=== PATIENT | female | born 1990 | race African-American/Black ===

== ENCOUNTER 2020-06-21 09:03 | Observation (INO) | payer MEDICAID, OTHER ==
[~2020-06-21 09:03] MED LIST: CEPH-37 PO; IBUP800T24 PO; LOP2C PO; ONDA-133 PO
[2020-06-21] MEDS ORDERED: PREN-96 PO (10:04)
[2020-06-21] MEDS ORDERED: METF-370 PO (10:04)
== END 2020-06-21 10:34 | disposition home or self-care (01) | DRG 566 ==
LOC: EDBD → LDRP 09:03
PROVIDERS: ADMIT Specialist; ATTEND Specialist
DX: O24.419 Gestational diabetes mellitus in pregnancy, unspecified control (principal); Z3A.31 31 weeks gestation of pregnancy
CPT/HCPCS: 59025; 76818; 81002; 82948; 82962; G0378

== ENCOUNTER 2020-06-28 09:07 | Observation (INO) | payer MEDICAID ==
[~2020-06-28 09:07] MED LIST changes: +METF-370 PO; +PREN-96 PO
== END 2020-06-28 10:30 | disposition home or self-care (01) | DRG 566 ==
LOC: LDRP 09:07
PROVIDERS: ADMIT Specialist; ATTEND Specialist
DX: O24.414 Gestational diabetes mellitus in pregnancy, insulin controlled (principal); Z3A.32 32 weeks gestation of pregnancy
CPT/HCPCS: 59025; 76818; 81002; 82962; G0378

== ENCOUNTER 2020-07-05 10:09 | Observation (INO) | payer MEDICAID | END 2020-07-05 11:38 | disposition home or self-care (01) | DRG 566 | LOC: LDRP 10:09 | PROVIDERS: ADMIT Specialist; ATTEND Specialist | DX: O24.414 Gestational diabetes mellitus in pregnancy, insulin controlled (principal); Z3A.33 33 weeks gestation of pregnancy | CPT/HCPCS: 59025; 76818; 81002; 82948; 82962; G0378 ==

== ENCOUNTER 2020-07-09 10:24 | Observation (INO) | payer MEDICAID ==
[~2020-07-09] VITALS: Ht 162.6 cm; Wt 95.3 kg
[2020-07-09] MEDS ORDERED: TERBUTALINE SULFATE 1 MG/ML 1ML VIAL SC ONE (12:00)
[2020-07-09] MEDS ORDERED: NIF10C PO (13:36)
== END 2020-07-09 13:30 | disposition home or self-care (01) | DRG 566 ==
LOC: EDBD → LDRP 10:24
PROVIDERS: ADMIT Specialist; ATTEND Specialist
DX: O24.415 Gestational diabetes mellitus in pregnancy, controlled by oral hypoglycemic drugs (principal); O62.9 Abnormality of forces of labor, unspecified; O12.03 Gestational edema, third trimester; Z91.040 Latex allergy status; Z79.84 Long term (current) use of oral hypoglycemic drugs; Z3A.34 34 weeks gestation of pregnancy
CPT/HCPCS: 59025; 76818; 81002; 82948; 82962; 96372; G0378; J3105

== ENCOUNTER 2020-07-12 10:14 | Observation (INO) | payer MEDICAID ==
[~2020-07-12 10:14] MED LIST changes: +NIF10C PO
== END 2020-07-12 11:20 | disposition home or self-care (01) ==
LOC: LDRP 10:14
PROVIDERS: ADMIT Obstetrics & Gynecology; ATTEND Obstetrics & Gynecology
DX: O24.414 Gestational diabetes mellitus in pregnancy, insulin controlled (principal); Z3A.34 34 weeks gestation of pregnancy
CPT/HCPCS: 59025; 76818; 81002; 82948; G0378

== ENCOUNTER 2020-07-16 12:43 | Observation (INO) | payer MEDICAID | END 2020-07-16 15:00 | disposition home or self-care (01) | LOC: LDRP 12:43 | PROVIDERS: ADMIT Specialist; ATTEND Specialist | DX: O24.414 Gestational diabetes mellitus in pregnancy, insulin controlled (principal); O62.9 Abnormality of forces of labor, unspecified; Z3A.35 35 weeks gestation of pregnancy | CPT/HCPCS: 76818; 82962; G0378; 59025; 81002; 82948 ==

== ENCOUNTER 2020-07-19 10:14 | Observation (INO) | payer MEDICAID | END 2020-07-19 11:15 | disposition home or self-care (01) | LOC: EDBD → LDRP 10:14 | PROVIDERS: ADMIT Specialist; ATTEND Specialist | DX: O24.414 Gestational diabetes mellitus in pregnancy, insulin controlled (principal); Z3A.35 35 weeks gestation of pregnancy | CPT/HCPCS: 59025; 76818; 81002; 82948; 82962; G0378 ==

== ENCOUNTER 2020-07-23 19:04 | Observation (INO) | payer MEDICAID | END 2020-07-23 20:28 | disposition home or self-care (01) | LOC: EDBD → LDRP 19:04 | PROVIDERS: ADMIT Specialist; ATTEND Specialist | DX: O24.419 Gestational diabetes mellitus in pregnancy, unspecified control (principal); Z3A.36 36 weeks gestation of pregnancy | CPT/HCPCS: 59025; 76818; 81002; 82948; 82962; G0378 ==

== ENCOUNTER 2020-07-26 11:20 | Observation (INO) | payer MEDICAID ==
[~2020-07-26] VITALS: Ht 157.5 cm; Wt 98.4 kg
[2020-07-26] MEDS ORDERED: NIFEdipine 10 MG CAP PO ONE ×2 (13:00→13:45)
[2020-07-26 13:36] LABS: Basophils # (auto) 0 10 ^3/uL (0-0.2); Basophils % (auto) 0.7 % (0.0-2.0); Eosinophils # (auto) 0.1 10 ^3/uL (0-0.8); Eosinophils % (auto) 1.3 % (0.0-7.0); Hematocrit 35.4 % (36.0-46.0); Hemoglobin 11.7 g/dL (12.2-16.2); Lymphocytes # (auto) 1.3 10 ^3/uL (0.4-5.4); Lymphocytes % (auto) 20.1 % (10.0-50.0); Mean Corpuscular Hemoglobin 26.3 pg (28.0-32.0); Mean Corpuscular Volume 79.9 fL (80.0-100.0); Monocytes # (auto) 0.6 10 ^3/uL (0-1.3); Monocytes % (auto) 9.4 % (0.0-12.0); Neutrophils # (auto) 4.4 10 ^3/uL (1.6-8.6); Neutrophils % (auto) 68.5 % (37.0-80.0); Platelet Count (auto) 254 10^3/uL (140-450); Red Blood Cells 4.43 10^6/uL (4.0-5.20); Red Cell Distribution Width 14.4 % (11.8-14.3); White Blood Cell 6.5 10^3/uL (4.4-10.8)
[2020-07-27 05:07] LABS: RPR Non Reactive (Non Reactive)
== END 2020-07-26 14:50 | disposition home or self-care (01) ==
LOC: LDRP 11:20
PROVIDERS: ADMIT Specialist; ATTEND Specialist
DX: O24.414 Gestational diabetes mellitus in pregnancy, insulin controlled (principal); O62.9 Abnormality of forces of labor, unspecified; Z3A.36 36 weeks gestation of pregnancy
CPT/HCPCS: 36415; 59025; 76818; 81002; 82948; 82962; 83036; 85025; 86592; G0378

== ENCOUNTER 2020-07-30 10:13 | Observation (INO) | payer MEDICAID | END 2020-07-30 11:15 | disposition home or self-care (01) | LOC: LDRP 10:13 | PROVIDERS: ADMIT Specialist; ATTEND Specialist | DX: O24.419 Gestational diabetes mellitus in pregnancy, unspecified control (principal); Z3A.37 37 weeks gestation of pregnancy | CPT/HCPCS: 59025; 76818; 81002; 82948; 82962; G0378 ==

== ENCOUNTER 2020-08-02 10:20 | Observation (INO) | payer MEDICAID ==
[~2020-08-02 10:20] MED LIST changes: -NIF10C PO; -PREN-96 PO
== END 2020-08-02 11:32 | disposition home or self-care (01) ==
LOC: LDRP 10:20
PROVIDERS: ADMIT Specialist; ATTEND Specialist
DX: O24.415 Gestational diabetes mellitus in pregnancy, controlled by oral hypoglycemic drugs (principal); O62.9 Abnormality of forces of labor, unspecified; Z3A.37 37 weeks gestation of pregnancy
CPT/HCPCS: 59025; 76818; 81002; 82948; 82962; G0378

== ENCOUNTER 2020-08-06 18:58 | Observation (INO) | payer MEDICAID ==
[~2020-08-06] VITALS: Ht 157.5 cm; Wt 98.9 kg
== END 2020-08-06 20:26 | disposition home or self-care (01) ==
LOC: EDBD → LDRP 18:58
PROVIDERS: ADMIT Obstetrics & Gynecology; ATTEND Obstetrics & Gynecology
DX: O24.419 Gestational diabetes mellitus in pregnancy, unspecified control (principal); O42.92 Full-term premature rupture of membranes, unspecified as to length of time between rupture and onset of labor; O46.93 Antepartum hemorrhage, unspecified, third trimester; Z91.040 Latex allergy status; Z3A.38 38 weeks gestation of pregnancy
CPT/HCPCS: 59025; 76818; 81002; G0378

== ENCOUNTER 2020-08-09 12:57 | Observation (INO) | payer MEDICAID ==
[2020-08-09] MEDS ORDERED: PREN-96 PO (16:31)
== END 2020-08-09 17:40 | disposition home or self-care (01) ==
LOC: LDRP 12:57
PROVIDERS: ADMIT Obstetrics & Gynecology; ATTEND Obstetrics & Gynecology
DX: O24.415 Gestational diabetes mellitus in pregnancy, controlled by oral hypoglycemic drugs (principal); O62.9 Abnormality of forces of labor, unspecified; O21.2 Late vomiting of pregnancy; Z3A.38 38 weeks gestation of pregnancy
CPT/HCPCS: 59025; 76818; 81002; 82948; 82962; G0378

== ENCOUNTER 2020-08-10 13:23 | Inpatient (IN) | payer MEDICAID ==
[~2020-08-10] VITALS: Ht 157.5 cm; Wt 99.8 kg
[~2020-08-10 13:23] MED LIST changes: +PREN-96 PO
[2020-08-10] MEDS ORDERED: LACT. RINGERS/OXYTOCIN 20UNITS 1,000 ML IV SCH (13:55)
[2020-08-10] MEDS ORDERED: NALBUPHINE HCL 10 MG/1ml INJECTION IV PRN (14:00)
[2020-08-10] MEDS ORDERED: LIDOCAINE 2%HCL (LOCAL ANESTH.) INJ 20ML MDV ID ONE (14:00)
[2020-08-10] MEDS: ACCU-CHEK COMFORT CURVE STRIP VI SCH ×2 (14:00→18:09)
[2020-08-10] MEDS ORDERED: PHISODERM TOP SOLN 240ML BTL TOP PRN (14:00)
[2020-08-10] MEDS ORDERED: WITCH HAZEL-GLYCERIN PAD TOP PRN (14:00)
[2020-08-10] MEDS ORDERED: DERMOPLAST 60ML BOTTLE TOP PRN (14:00)
[2020-08-10 14:32] LABS: Eosinophils # (auto) 0.1 10 ^3/uL (0-0.8); Hemoglobin 12.4 g/dL (12.2-16.2); Monocytes # (auto) 0.8 10 ^3/uL (0-1.3)
[2020-08-10 14:33] LABS: Basophils # (auto) 0 10 ^3/uL (0-0.2); Basophils % (auto) 0.5 % (0.0-2.0); Eosinophils % (auto) 1.5 % (0.0-7.0); Hematocrit 37.7 % (36.0-46.0); Lymphocytes # (auto) 1.3 10 ^3/uL (0.4-5.4); Lymphocytes % (auto) 16.2 % (10.0-50.0); Mean Corpuscular Hemoglobin 25.9 pg (28.0-32.0); Mean Corpuscular Hgb Conc. 32.8 g/dL (32.0-36.0); Mean Corpuscular Volume 78.9 fL (80.0-100.0); Monocytes % (auto) 9.2 % (0.0-12.0); Neutrophils # (auto) 6.1 10 ^3/uL (1.6-8.6); Neutrophils % (auto) 72.6 % (37.0-80.0); Nucleated Red Blood Cells % 0.1 %; Platelet Count (auto) 277 10^3/uL (140-450); Red Blood Cells 4.79 10^6/uL (4.0-5.20); Red Cell Distribution Width 14.5 % (11.8-14.3); White Blood Cell 8.3 10^3/uL (4.4-10.8)
[2020-08-10 14:36] LABS: Urine Bacteria FEW /hpf (None Seen); Urine Blood TRACE /uL (Negative); Urine Specific Gravity 1.009 (1.001-1.035); Urine WBC 2 /hpf (0 - 5)
[2020-08-10 14:46] LABS: INR 0.92 (0.9-1.15); Partial Thromboplastin Time 26.5 sec (23.0-31.2)
[2020-08-10 14:48] LABS: Albumin 2.5 g/dL (3.4-5.0); Calcium 8.5 mg/dL (8.5-10.1); Potassium 3.9 mmol/L (3.5-5.1)
[2020-08-10 14:51] LABS: Bilirubin, Total 0.5 mg/dL (0.2-1.0); Total Protein 7.1 g/dL (6.4-8.2); Uric Acid 5.6 mg/dL (2.6-6.0)
[2020-08-10 16:38] LABS: Alcohol, Urine < 3.0 mg/dL (0-10); Amphetamine Screen, Urine NEGATIVE (NEGATIVE); Barbiturate Scree,Urine NEGATIVE (NEGATIVE); Benzodiazephine Screen, Urine NEGATIVE (NEGATIVE); Cannabinoid Screen, Urine NEGATIVE (NEGATIVE); Cocaine Screen, Urine NEGATIVE (NEGATIVE); Opiate Scree,Urine NEGATIVE (NEGATIVE); Phencyclidine Screen, Urine NEGATIVE (NEGATIVE)
[2020-08-10] MEDS: miSOPROStol 50 MCG per PRE-CUT 1/2 TAB PO PRN ×2 (17:08→21:08)
[2020-08-11] MEDS: miSOPROStol 50 MCG per PRE-CUT 1/2 TAB PO PRN (01:34)
[2020-08-11] MEDS ORDERED: PROMETHAZINE HCL 25 MG/ML 1ML IM ONE (02:00)
[2020-08-11] MEDS ORDERED: BUTORPHANOL TARTRATE 2 MG/1 ML VIAL IM ONE (02:00)
[2020-08-11] MEDS ORDERED: LACTATED RINGER'S 500 ML IV ONE (05:58)
[2020-08-11] MEDS ORDERED: LACTATED RINGER'S 1,000 ML IV ONE (05:58)
[2020-08-11] MEDS ORDERED: ePHEDrine SULFATE 50 MG/ML AMP IV ONE (06:00)
[2020-08-11] MEDS ORDERED: LIDOCAINE HCL 2 %PF INJ 10ML AMP IJ ONE (06:00)
[2020-08-11] MEDS ORDERED: fentaNYL 400mCg/200ml W ROPIVA 200 ML EPI SCH ×2 (06:00→06:30)
[2020-08-11] MEDS ORDERED: fentaNYL CITRATE 100 MCG/2 ML VL IV ONE (06:00)
[2020-08-11] MEDS ORDERED: LIDOCAINE W/ EPINEPHRINE 1 % INJ 30ML IJ ONE (06:00)
[2020-08-11 07:06] LABS: RPR Non Reactive (Non Reactive)
[2020-08-11] MEDS: LACTATED RINGER'S 1,000 ML IV SCH ×2 (08:51→14:51)
[2020-08-11] MEDS ORDERED: ceFAZolin 1GM 2 GM in D5W 5% 100 ML IV ONE (12:00)
[2020-08-11] MEDS ORDERED: ACETAMINOPHEN 325 MG TAB PO ONE ×3 (12:00→19:00)
[2020-08-11] MEDS ORDERED: GENTAMICIN PER PHARMACY 0 ML IV SCH (13:45)
[2020-08-11] MEDS ORDERED: GENTAMICIN SULFATE 120 MG in D5W 5% 100 ML IV ONE (13:45)
[2020-08-11] MEDS ORDERED: GENTAMICIN SULFATE 80 MG in D5W 5% 100 ML IV SCH (17:00)
[2020-08-11] MEDS ORDERED: miSOPROStol 100 mcg TAB ONE (19:14)
[2020-08-11] MEDS ORDERED: METHYLERGONOVINE MALEATE 0.2 MG/ML AMP IM ONE ×2 (19:15)
[2020-08-11] MEDS: ceFAZolin 1GM/50ML 50 ML IV SCH (19:56)
--- NOTE | 2020-08-11 20:00 | NUR ---
Teaching: Reviewed information in [employer] booklet with patient. Discussed benefits of and risks associated with not . Discussed different positions, proper latch, feeding cues, and baby-led . Provided information of medication side effects related to . All questions and concerns addressed at this time. Patient verbalized understanding of information. Infant latched at this time.
--- NOTE | 2020-08-11 21:45 | NUR ---
Ambulation: Patient OOB with standby assistance by RN. Patient ambulated to bathroom with steady gait. Patient able to void 600ml without difficulty. [facility] teaching provided with returned demonstration by patient. Clean gown provided and bed linen changed. Patient ambulated back to bed with steady gait and no distress noted.
[2020-08-11] MEDS ORDERED: ACETAMINOPHEN 325 MG TAB PO PRN (22:00)
--- NOTE | 2020-08-11 22:28 | NUR ---
Bottle-feeding Education: Patient encouraged to breastfeed. Benefits of and the risk of providing formula to was discussed. Patient verbalized understanding of the benefits and is aware of risk and insists on bottle-feeding. Formula provided and instruction on formula preperation from the [employer] booklet reviewed with patient.
[2020-08-11] MEDS: GENTAMICIN SULFATE 80 MG in D5W 5% 100 ML IV SCH (23:14)
[2020-08-11 23:18] VITALS: BP 118/75
[2020-08-12 03:03] VITALS: BP 117/57
[2020-08-12 03:06] LABS: Rubella Antibodies, IgG 4.43 index (Immune >0.99)
[2020-08-12] MEDS: ceFAZolin 1GM/50ML 50 ML IV SCH (05:43)
[2020-08-12 06:01] LABS: Basophils # (auto) 0 10 ^3/uL (0-0.2); Eosinophils # (auto) 0 10 ^3/uL (0-0.8); Hemoglobin 9.2 g/dL (12.2-16.2); Mean Corpuscular Hemoglobin 26.2 pg (28.0-32.0); Monocytes # (auto) 2.7 10 ^3/uL (0-1.3)
[2020-08-12 06:03] LABS: Basophils % (auto) 0.2 % (0.0-2.0); Hematocrit 27.7 % (36.0-46.0); Lymphocytes # (auto) 1.7 10 ^3/uL (0.4-5.4); Lymphocytes % (auto) 7.7 % (10.0-50.0); Mean Corpuscular Volume 79.4 fL (80.0-100.0); Neutrophils # (auto) 17.9 10 ^3/uL (1.6-8.6); Neutrophils % (auto) 80.1 % (37.0-80.0); Nucleated Red Blood Cells % 0.1 %; Platelet Count (auto) 216 10^3/uL (140-450); Red Blood Cells 3.49 10^6/uL (4.0-5.20); Red Cell Distribution Width 14.4 % (11.8-14.3); White Blood Cell 22.4 10^3/uL (4.4-10.8)
[2020-08-12 06:08] LABS: Potassium 3.8 mmol/L (3.5-5.1)
[2020-08-12 06:17] LABS: Calcium 8.2 mg/dL (8.5-10.1)
[2020-08-12 07:30] VITALS: BP 104/56
[2020-08-12] MEDS: GENTAMICIN SULFATE 80 MG in D5W 5% 100 ML IV SCH (08:04)
[2020-08-12] MEDS: IBUPROFEN 600 MG TAB PO PRN ×2 (10:52→21:07)
[2020-08-12 11:00] VITALS: BP 99/55
[2020-08-12 14:05] VITALS: BP 91/54
--- NOTE | 2020-08-12 14:56 | NUR ---
Dr. Schwarz called and notified of PT current CBC results, BP running 91/54 P86, BP93/54 P 93, Fundus firm at U with scant bleeding. Received order for Iron PO BID.
[2020-08-12] MEDS ORDERED: FERROUS SULFATE 325 MG TAB PO SCH (18:00)
[2020-08-12 19:00] VITALS: BP 104/61
--- NOTE | 2020-08-12 19:50 | NUR ---
IV removal IV DC'd with clean sterile technique, catheter fully intact. Pressure dressing applied to site. Patient tolerated well.
[2020-08-12 23:30] VITALS: BP 112/64
[2020-08-13 03:00] VITALS: BP 101/59
[2020-08-13 06:38] VITALS: BP 102/58
--- NOTE | 2020-08-13 08:42 | NUR ---
Discharge: Discharge instructions given as ordered. Pt encouraged to follow up with [facility] as instructed. All questions and concerns addressed. Patient verbalized understanding. Medication reconciliation completed and copy given to patient. PT refused TDAP vaccination. Patient encouraged to prepare to depart unit.
--- NOTE | 2020-08-13 09:20 | NUR ---
Discharge: Patient taken to vehicle via wheelchair with all personal belongings, accompanied by staff and family member. No distress noted at time of departure, no adverse changes in status since initial assessment.
== END 2020-08-13 09:20 | disposition home or self-care (01) | DRG 560 ==
LOC: LDRP 13:23 → OBSVTOIN 13:52 → EDBD 13:52 → LDRP 13:53
PROVIDERS: ADMIT Obstetrics & Gynecology; ATTEND Obstetrics & Gynecology
PROC: 10E0XZZ Delivery of Products of Conception, External Approach (ICD-10-PCS; principal; 2020-08-11)
PROC: 0KQM0ZZ Repair Perineum Muscle, Open Approach (ICD-10-PCS; 2020-08-11)
PROC: 3E0R3BZ Introduction of Anesthetic Agent into Spinal Canal, Percutaneous Approach (ICD-10-PCS; 2020-08-11)
PROC: 00HU33Z Insertion of Infusion Device into Spinal Canal, Percutaneous Approach (ICD-10-PCS; 2020-08-11)
DX: O24.429 Gestational diabetes mellitus in childbirth, unspecified control (principal); O70.1 Second degree perineal laceration during delivery; Z37.0 Single live birth; Z3A.38 38 weeks gestation of pregnancy; Z20.828 Contact with and (suspected) exposure to other viral communicable diseases
CPT/HCPCS: 36415; 59025; 59409; 62282; 80048; 80053; 80170; 80307; 81001; 81002; 82948; 82962; 84112; 84550; 85025; 85610; 85730; 86592; 86762; 86850; 86900; 86901; 94760; 96360; 96361; 96366; 96374; 96375; G0378; J0690; J2590; J7060